=== PATIENT | male | born 1995 | race Caucasian/White ===

== ENCOUNTER → 2024-06-20 | Outpatient (CLI) | payer OTHER ==
--- NOTE | 2024-06-20 11:07 | XR ---
EXAMINATION TYPE: XR lumbar spine 3V DATE OF EXAM: 06/20/2024 10:58 AM COMPARISON: None CLINICAL INDICATION: Male, 28 years old with history of S39.012A STRAIN OF MUSCLE, FASCIA AND TENDON OF LOWER BACK,, , lower back back pain after lifting FINDINGS: 5 lumbar type vertebral bodies. Straightening of the normal lumbar lordosis. Vertebral body heights a nd disc interspaces are preserved. Alignment is maintained. IMPRESSION: Straightening of the normal lumbar lordosis may be positional or due to muscle spasm. No vertebral co mpression collapse or malalignment. [facility], , 06/20/2024 11:05 AM
== END | disposition home or self-care (01) ==
LOC: RADXRMAIN 10:40
PROVIDERS: ATTEND Emergency Medicine
DX: S39.012A Strain of muscle, fascia and tendon of lower back, initial encounter (principal)
CPT/HCPCS: 72100